=== PATIENT | male | born 1990 | race Caucasian/White ===

== ENCOUNTER 2019-07-03 12:50 | Observation (INO) | payer SELFPAY ==
[2019-07-03] VITALS (12 sets, daily range): BP systolic 110–152; BP diastolic 59–76; PULSE 60–131; RESP 15–20; Ht 157.5 cm; Wt 73.5 kg
[~2019-07-03] VITALS: Ht 157.5 cm; Wt 73.5 kg
[2019-07-03] MEDS ORDERED: morphine 2 MG INJ IV STA (13:50)
--- NOTE | 2019-07-03 14:23 | ERD ---
ER Documentation Chief Complaint Chief Complaint RECTAL PAIN/BLEEDING S/P HEMORRHOIDECTOMY 4 DAYS AGO HPI 28-year-old male presenting with severe rectal pain after hemorrhoidectomy 4 years ago. Patient states that he was seen yesterday at [place] and was supposed to have follow-up surgery by Dr. Quevedo however patient declined and was nervous about the surgery. Patient went home AMA and has now returned given his pain is worsened. Patient denies any fevers and does have some blood noted from the rectum. Has taken ibuprofen with no alleviation. Denies medical problems. NKDA. History hemorrhoidectomy and appendectomy. Social history smokes cigarettes. Drug use denies ROS All systems reviewed and are negative except as per history of present illness. Allergies Allergies: Coded Allergies: No Known Allergies (Verified Allergy, Unknown, 07/03/19) FmHx Family History: No diabetes, No coronary disease, No other Physical Exam Vitals Vital Signs Date Temp Pulse Resp B/P (MAP) Pulse Ox O2 O2 Flow FiO2 Time Delivery Rate 07/03/19 98.8 101 18 116/69 100 13:00 (85) Physical Exam GENERAL: The patient is well-appearing, well-nourished, in no acute distress HEENT: Atraumatic. Conjunctivae are pink. Pupils equal, round, and reactive to light. There is no scleral icterus. Tympanic membranes clear bilaterally. Oropharynx clear. CHEST: Clear to auscultation bilaterally. There are no rales, wheezes or rhonchi. HEART: Regular rate and rhythm. No murmurs, clicks, rubs or gallops. ABDOMEN:Soft, nontender and nondistended. Good bowel sounds. No rebound or guarding. No gross peritonitis. No gross organomegaly or masses. SKIN: Drainage noted around the rectum however patient's pain is so severe I am unable to completely separate the buttocks to evaluate rectum. Results 24 hrs Current Medications Medications Dose Sig/[place] Start Time Status Last (Trade) Ordered Route PRN Stop Time Admin Dose Reason Admin Morphine 2 mg ONCE STAT 07/03/19 DC Sulfate IV 13:50 (morphine) 07/03/19 14:00 Procedures/MDM ER course: Patient admitted for higher level care and surgical evaluation. Dr. Quevedo was consulted and patient will be taken to the OR. I have low suspicion for sepsis however patient will be evaluated for postsurgical complications. MDM: 28-year-old male presenting with postsurgical pain after hemorrhoidectomy 4 days ago. Patient was admitted and taken to the OR for evaluation under anesthesia. Dr. Quevedo will care for the patient with higher level of care and surgical intervention. Patient is stable at the time of admission. All questions answered at the time of admission ALBERTO MENDOZA PA-C Jul 03, 2019 14:23
[2019-07-03] MEDS ORDERED: LIDOCAINE 2% 20 ML UROJET SYRINGE MM ONE ×2 (15:00→19:30)
--- NOTE | 2019-07-03 15:03 | CONS ---
Assessment/Plan Assessment/Plan Hospital Course (Demo Recall) 1. Rectal bleed s/p THD, hemorrhoidectomy 06/28/19 -anoscopy, rigid sig, control of bleed today -trend 2. Rectal pain -pain management prn -as above 3. Urinary hesitancy -monteiro Thank you. Patient seen and examined in collaboration with Dr. Valentin Quevedo. Consultation Date/Type/Reason Admit Date/Time Date of Consultation: Jul 03, 2019 Type of Consult surgical Reason for Consultation rectal bleeding/pain Requesting Provider: ALBERTO MENDOZA PA-C Date/Time of Note DATE: 07/03/19 TIME: 14:45 Hx of Present Illness Burke Alvarado is a 28yo man who recently underwent THD, proctoplasty and excision of hemorrhoid on 06/28/19, who presents with rectal bleeding. Bleeding is noted during sitz bath. Associated symptoms include rectal pain and difficulty urinating. Notably, he presented to outside hospital with similar symptoms last night. He was seen by Dr. Quevedo and offered surgery, however, patient refused and left against medical advice. No reported fevers, chills, congested cough, vomiting, diarrhea, sz, rash, neuro symptoms. General surgery was asked to evaluate. 12 point ros was reviewed and is negative except as stated in hpi. Past Medical History appendicitis hemorrhoid Allergies: Coded Allergies: No Known Allergies (Verified Allergy, Unknown, 07/03/19) Past Surgical History as above Family History Significant Family History: no pertinent family hx Social History Alcohol Use: none Smoking Status: Current every day smoker Drug Use: none Exam/Review of Systems Exam Vitals Vital Signs Date Temp Pulse Resp B/P (MAP) Pulse Ox O2 O2 Flow FiO2 Time Delivery Rate 07/03/19 98.8 101 18 116/69 100 13:00 (85) Constitutional: alert, oriented Psych: nl mood/affect, anxiety (min) Head: normocephalic, atraumatic Eyes: nl conjunctiva, EOMI, nl lids, nl sclera ENMT: nl external ears & nose, nl lips & teeth, mucosa pink and moist Neck: supple, non-tender; No jvd Respiratory: normal air movement; No congested cough Cardiovascular: regular rate and rhythm, nl pulses Gastrointestinal: soft, non-tender, distended (mod) Genitourinary - Male: other (rectal: too much pain to examine - will exmine under anoscopy) Musculoskeletal: nl extremities to inspection, nl gait and stance Extremities: normal pulses Neurological: nl mental status, nl speech, nl strength Skin: nl turgor; No rash or lesions Lymph: nl lymph nodes CHASE ESPARZA NP Jul 03, 2019 14:55
--- NOTE | 2019-07-03 15:37 | PREAC ---
Date/Time of Note Date/Time of Note DATE: 07/03/19 TIME: 15:35 Anesthesia Eval and Record Evaluation Time Pre-Procedure Interview DATE: 07/03/19 TIME: 15:35 Age 28 Sex male NPO: 8 hrs Preoperative diagnosis bleeding Planned procedure anoscopy, possible rigid sigmoidoscopy, possible control of bleeding Past Medical History Past Medical History: Includes Pulm: Smoking Hx (1 PPD 15 years) Surgery & Anesthesia Issues No known issue Meds Anticoagulation: No Beta Jhon within 24 hr: No Reason Beta Jhon not given: Pt. not on B-Jhon Meds reviewed: Yes Allergies Coded Allergies: No Known Allergies (Verified Allergy, Unknown, 07/03/19) Allergies Reviewed: Yes Labs/Studies Labs Reviewed: Other (NA - no labs drawn will order) test: N/A Pre-procedure Exam Last vitals Vital Signs Date Temp Pulse Resp B/P (MAP) Pulse Ox O2 O2 Flow FiO2 Time Delivery Rate 07/03/19 98.1 70 18 109/57 99 Room Air 15:27 (74) Airway: Adequate mouth opening Mallampati: Mallampati II Teeth: Normal Lung: Normal Heart: Normal ASA Physical Status ASA physical status: 2 Emergency: None Planned Anesthetic General/MAC: ETT Pre-operative Attestations Prior to commencing anesthesia and surgery, the patient was re-evaluated, there was verification of: *The patient's identity *The results of appropriate recent lab work and preoperative vital signs *The above evaluation not changing prior to induction *Anesthetic plan, risk benefits, alternative and complications discussed with patient/family; questions answered; patient/family understands, accepts and wishes to proceed. CHEKO WHITNEY Jul 03, 2019 15:37
--- NOTE | 2019-07-03 16:20 | PREAC ---
Date/Time of Note Date/Time of Note DATE: 07/03/19 TIME: 16:19 Anesthesia Eval and Record Evaluation Time Pre-Procedure Interview DATE: 07/03/19 TIME: 16:19 Age 28 Sex male NPO: 8 hrs Preoperative diagnosis lower gi bleed Planned procedure sigmoidoscopy Past Medical History Past Medical History: None Surgery & Anesthesia Issues No known issue Meds Anticoagulation: No Beta Jhon within 24 hr: No Reason Beta Jhon not given: Pt. not on B-Jhon Meds reviewed: Yes Allergies Coded Allergies: No Known Allergies (Verified Allergy, Unknown, 07/03/19) Allergies Reviewed: Yes Labs/Studies Labs Reviewed: Reviewed by anesthesiologist Result Diagram: 07/03/19 1424 07/03/19 1424 Laboratory Tests 07/03/19 14:24 test: N/A Pre-procedure Exam Last vitals Vital Signs Date Temp Pulse Resp B/P (MAP) Pulse Ox O2 O2 Flow FiO2 Time Delivery Rate 07/03/19 98.1 70 18 109/57 99 Room Air 15:27 (74) Airway: Adequate mouth opening Mallampati: Mallampati I Teeth: Normal Lung: Normal Heart: Normal ASA Physical Status ASA physical status: 1 Emergency: None Planned Anesthetic General/MAC: ETT, LMA Pre-operative Attestations Prior to commencing anesthesia and surgery, the patient was re-evaluated, there was verification of: *The patient's identity *The results of appropriate recent lab work and preoperative vital signs *The above evaluation not changing prior to induction *Anesthetic plan, risk benefits, alternative and complications discussed with patient/family; questions answered; patient/family understands, accepts and wishes to proceed. BEVERLY GUZMAN MD Jul 03, 2019 16:20
[2019-07-03] MEDS ORDERED: CEFAZOLIN 1 GM INJ ONE (16:30)
[2019-07-03] MEDS ORDERED: metroNIDAZOLE 500 MG/100 ML NS IVPB ONE (16:30)
[2019-07-03] MEDS ORDERED: DESFLURANE 15 MIN ONE (16:30)
[2019-07-03] MEDS ORDERED: ROCURONIUM 50 MG INJ ONE (16:31)
[2019-07-03] MEDS ORDERED: SUCCINYLCHOLINE CHLORIDE 100 MG/5 ML SYG IV ONE (16:31)
[2019-07-03] MEDS ORDERED: HYDROmorphONE 2 MG/ML SYG ONE (16:31)
[2019-07-03] MEDS ORDERED: PROPOFOL 20 ML ONE (16:31)
[2019-07-03] MEDS ORDERED: BUPIVACAINE 0.25%/EPI (SDV) 10 ML INJ ONE (16:35)
[2019-07-03] MEDS ORDERED: metroNIDAZOLE 500 MG/NS (PMX) 0 ML IVPB ONE (16:35)
[2019-07-03] MEDS ORDERED: LIDOCAINE 1% (MPF) 30 ML INJ ONE (16:35)
[2019-07-03] MEDS ORDERED: metroNIDAZOLE 500 MG/NS (PMX) 100 ML IVPB ONE (16:56)
[2019-07-03] MEDS ORDERED: THROMBIN 5000 UNIT (RECOTHROM) VIAL ONE ×2 (16:57→17:05)
[2019-07-03] MEDS ORDERED: GELATIN SIZE 100 SPONGE ONE (16:57)
[2019-07-03] MEDS ORDERED: THROMBIN 5000 UNIT (RECOTHROM) VIAL TOP ONE (17:12)
[2019-07-03] MEDS ORDERED: GLYCOPYRROLATE 0.4 MG INJ ONE (17:15)
[2019-07-03] MEDS ORDERED: NEOSTIGMINE 3 MG/3 ML SYRINGE ONE (17:15)
[2019-07-03] MEDS ORDERED: DEXAMETHASONE 4 MG/ML 5 ML INJ ONE (17:19)
[2019-07-03] MEDS ORDERED: ONDANSETRON 4 MG INJ ONE (17:23)
[2019-07-03] MEDS ORDERED: DIPHENHYDRAMINE 50 MG INJ IV PRN (17:30)
[2019-07-03] MEDS ORDERED: FENTAnyl 50 MCG/ML VIAL IV PRN ×3 (17:30)
[2019-07-03] MEDS ORDERED: EPHEDrine 25 MG/5 ML SYG IV PRN (17:30)
[2019-07-03] MEDS ORDERED: ONDANSETRON 4 MG INJ IV PRN ×2 (17:30)
[2019-07-03] MEDS ORDERED: LIDOCAINE 2% JELLY 5 ML TOP PRN (17:30)
[2019-07-03] MEDS ORDERED: ACETAMINOPHEN 325 MG TAB PO SCH (17:30)
[2019-07-03] MEDS ORDERED: traMADol 50 MG TAB PO PRN (17:30)
[2019-07-03] MEDS ORDERED: LABETALOL HCL 20MG INJ IV PRN (17:30)
[2019-07-03] MEDS ORDERED: MEPERIDINE 25 MG INJ IV PRN (17:30)
[2019-07-03] MEDS ORDERED: OXYCODONE/ACETAMINOPHEN (5/325) TAB PO PRN ×2 (17:30)
[2019-07-03] MEDS ORDERED: IPRATROPIUM (NEB) 0.5 MG/2.5 ML AMP HHN PRN (17:30)
[2019-07-03] MEDS ORDERED: ACETAMINOPHEN 325 MG TAB PO PRN (17:30)
[2019-07-03] MEDS ORDERED: hydrALAzine 20 MG INJ IV PRN (17:30)
[2019-07-03] MEDS ORDERED: TRIMETHOBENZAMIDE 100 MG/ML VIAL IM PRN (17:30)
[2019-07-03] MEDS ORDERED: MIDAZOLAM 1 MG/ML 2 ML INJ IV PRN (17:30)
[2019-07-03] MEDS ORDERED: ALBUTEROL 0.083% (NEB) 2.5 MG/3 ML AMP HHN PRN (17:30)
[2019-07-03] MEDS ORDERED: HYDROmorphONE 1 MG/5 ML IV SYRINGE IV PRN (17:30)
[2019-07-03] MEDS ORDERED: ACETAMINOPHEN 1000MG/100ML IV 100 ML IVPB ONE (17:30)
[2019-07-03] MEDS ORDERED: HYDROCODONE/APAP (5/325) TAB PO PRN (17:30)
[2019-07-03] MEDS: HYDROmorphONE 1 MG/5 ML IV SYRINGE IV PRN ×4 (17:35→19:15)
[2019-07-03] MEDS: KETOROLAC 15 MG INJ IV SCH ×2 (17:44→23:48)
--- NOTE | 2019-07-03 18:02 | OPR ---
Date/Time of Note Date/Time of Note DATE: 07/03/19 TIME: 17:53 Operative Report Procedure Date: Jul 03, 2019 Preoperative Diagnosis Recent hemorrhoidectomy and THD Anal bleeding Postoperative Diagnosis Recent hemorrhoidectomy and THD Anal bleeding from raw surfaces Operation/Procedure Performed 1. Endoscopy 2. Rigid sigmoidoscopy 3. Control of anal bleeding with electrocautery and suture ligation 4. Local anesthetic injection, [id number] Surgeon Sienna Muse MD Nib Inspector Malka Ashley NP Anesthesia Type: general (Per LMA and local) Anesthesiologist: BEVERLY GUZMAN MD Estimated Blood Loss: 0 - 10 ml's Transfusion none Specimen None Grafts/Implants Thrombin and Gelfoam Tubes/Drains None Complications none Pt Condition Post Procedure: stable Disposition: PACU Indications Patient had THD and hemorrhoidectomy few days ago. He developed bleeding per rectum and was seen yesterday at [place] emergency room however decided to leave AMA because he did not want to have surgery at that time. However he persisted with bleeding who presented here and decision was made to bring him to surgery. Risks benefits alternatives have been fully reviewed with patient and his as usual and customary and as his previous surgery. They understand like to proceed with surgery. Procedure Description Patient was brought in and placed supine on the operating table initially and after induction of anesthesia placed in lithotomy. All pressure points were well-padded. Area was prepped and draped sterilely. Timeout was performed. Local anesthetic injection was done circumferentially. Endoscopy was performed identifying oozing from raw surfaces from the area of hemorrhoidectomy. Some of the mucosal sutures had come apart at this site. Electrocautery was used to control oozing. 1 of these areas required suture with 2-0 Vicryl. This controlled the bleeding. Rigid sigmoidoscopy was performed to 10 cm without any other sites of bleeding. However there is some mucosal necrosis from the THD. No induration or fluctuance was seen. No abscess seen. At this point there was no bleeding. Area was irrigated with Betadine and saline. Thrombin and Gelfoam roll were placed in the vault and over the raw surfaces. Dressing was applied. Patient was recovered and taken back to PACU in stable condition. SIENNA MUSE MD Jul 03, 2019 18:02
[2019-07-03] MEDS ORDERED: LORAZEPAM 2 MG INJ IV ONE (18:30)
[2019-07-03] MEDS: morphine 2 MG INJ IV PRN (21:53)
[2019-07-04] MEDS: morphine 2 MG INJ IV PRN ×2 (02:41→04:41)
[2019-07-04] MEDS: KETOROLAC 15 MG INJ IV SCH ×3 (05:58→16:46)
[2019-07-04 08:27] VITALS: BP 98/59; PULSE 68; RESP 18
--- NOTE | 2019-07-04 11:23 | PN ---
Date/Time of Note Date/Time of Note DATE: 07/04/19 TIME: 11:18 Assessment/Plan Lines/Catheters IV Catheter Type (from Nrs): Saline Lock Monteiro in Place (from Nrs): No Assessment/Plan Chief Complaint/Hosp Course 1. Rectal bleed s/p THD, hemorrhoidectomy 06/28/19 Anal bleeding from raw surfaces: Status post endoscopy, rigid sigmoidoscopy, control of anal bleeding w ith electrocautery and suture ligation 07/03/2019 -Close monitoring -Sitz baths as needed -Topical lidocaine as needed -DC today 2. Rectal pain -pain management prn -as above 3. Urinary hesitancy status post Monteiro -DC Monteiro Thank you. Patient seen and examined in collaboration with Dr. Valentin Quevedo. Subjective 24 Hr Interval Summary Rectal pain improved. Discomfort from monteiro. No fevers, chills, sob, congested cough, cp, palpitations, hughes, dizziness, n/v/d/dysuria, rectal bleeding. Exam/Review of Systems Vital Signs Vitals Vital Signs Date Temp Pulse Resp B/P (MAP) Pulse Ox O2 O2 Flow FiO2 Time Delivery Rate 07/04/19 98.1 68 18 98/59 (72) 98 Room Air 08:27 07/03/19 2.0 20:13 Intake and Output 07/03/19 07/03/19 07/04/19 1515:00 23:00 07:00 IntakeIntake Total 950 ml 1000 ml OutputOutput Total 410 ml 1950 ml BalanceBalance 540 ml -950 ml Exam Free Text/Dictation Constitutional: alert, oriented Psych: nl mood/affect, anxiety (min) Head: normocephalic, atraumatic Eyes: nl conjunctiva, EOMI, nl lids, nl sclera ENMT: nl external ears & nose, nl lips & teeth, mucosa pink and moist Neck: supple, non-tender; No jvd Respiratory: normal air movement; No congested cough Cardiovascular: regular rate and rhythm, nl pulses Gastrointestinal: soft, non-tender, distended (mod) Genitourinary - Male: other (rectal: No bleeding) Musculoskeletal: nl extremities to inspection, nl gait and stance Extremities: normal pulses Neurological: nl mental status, nl speech, nl strength Skin: nl turgor; No rash or lesions Lymph: nl lymph nodes Results Result Diagram: 07/04/19 0452 07/04/19 0452 CHASE ESPARZA NP Jul 04, 2019 11:23
--- NOTE | 2019-07-04 11:29 | PDOCDIS ---
Discharge Instructions CONDITION [id number] Patient Condition: [id number] Good HOME CARE INSTRUCTIONS: [id number] Diet Instructions: [id number] Regular [id number] Special Diet: [id number] Adequate amount of fiber and increase fluids ACTIVITY: [id number] Activity Restrictions: [id number] No Restrictions Slowly Increase Activity Avoid heavy lifting Do not operate Machinery [id number] Bathing Restrictions: [id number] Sitz bath as needed FOLLOW UP/APPOINTMENTS Follow-up Plan Dr. Quevedo's office in 1 to 2 weeks CHASE ESPARZA NP Jul 04, 2019 11:29
[2019-07-04] MEDS ORDERED: DOCUSATE SODIUM 100 MG CAP PO PRN (12:00)
[2019-07-04 15:23] VITALS: BP 95/56; PULSE 73; RESP 18
--- NOTE | 2019-07-05 18:30 | PAC ---
Date/Time of Note Date/Time of Note DATE: 07/05/19 TIME: 18:30 Post-Anesthesia Notes Post-Anesthesia Note Last documented vital signs Vital Signs Date Temp Pulse Resp B/P (MAP) Pulse Ox O2 O2 Flow FiO2 Time Delivery Rate 07/04/19 98.3 73 18 95/56 (69) 99 Room Air 15:23 07/03/19 2.0 20:13 Activity: WNL Respiratory function: WNL Cardiovascular function: WNL Mental status: Baseline Pain reasonably controlled: Yes Hydration appropriate: Yes Nausea/Vomiting absent: Yes BEVERLY GUZMAN MD Jul 05, 2019 18:30
== END 2019-07-04 18:55 | disposition home or self-care (01) ==
LOC: FTE 12:50 → SDS 14:20 → SUR 14:20 → MS1 20:28 → MS3 21:34 → INTOOBSV 21:34 → MS1 21:50
PROVIDERS: ADMIT Surgery; ATTEND Surgery
DX: K62.5 Hemorrhage of anus and rectum (principal); Z87.891 Personal history of nicotine dependence; R39.11 Hesitancy of micturition
CPT/HCPCS: 46614; 80048; 81003; 85025; 85049; 85610; 85670; 85730; 86850; 86900; 86901; 87086; 96374; 96375; 99285; G0378; J0690; J1100; J1170; J1885; J2060; J2270; J2405; J2710